=== PATIENT | male | born 1950 | race Caucasian/White ===

== ENCOUNTER → 2019-12-10 | Outpatient (CLI) | payer MEDICARE, OTHER ==
--- NOTE | 2019-12-12 11:08 | PATH ---
[address] [address] PATHOLOGY RPT PROCEDURE Name: JOLENE LIZ Room: [facility]#: [id number] Admission: 12/10/19 Date of : 46 Discharge: Report #: [id number] Path Case #: [id number] Note [facility] Accession Number: [id number] TESTS RESULT FLAG UNITS REF RANGE LAB Clinician Provided Cytology Information No. of containers..01 Other (Miscellaneous) Source: RT THYROID FNA DIAGNOSIS: RT THYROID FNA NEGATIVE FOR MALIGNANT CELLS. B[place]ESDA CATEGORY II. SPECIMEN CONSISTS OF ABUNDANT BENIGN FOLLICULAR CELLS, HEMOSIDERIN-LADEN MACROPHAGES, SCANT COLLOID AND BLOOD. THE PATTERN IS CONSISTENT WITH ADENOMATOID NODULE. THIS INTERPRETATION INCLUDES EVALUATION OF A CELL BLOCK. Pathologist ICD10: 02 E04.1 Signed out by: 02 Brant Gonsales MD, Pathologist NPI- [id number] Performed by: Alida Bingham, Forensic Anthropologist ([facility]) Gross description: 01 20 ML, PEACH/CLEAR, 4FX 4AD /LCS 12/10/2019 1531 Local FLAG LEGEND: L-Low Normal,H-High Normal,LL-Alert Low,HH-Alert High <-Panic Low,>-Panic High,A-Abnormal,AA-Critical Abnormal Performed at: [address] [place] [address] Jose Whaley MD, [address] [place] [address] [address] [place] [address] Brant Gonsales MD, Specimen Comment: [id number] Performed at: [address], [place], [place] [id number] MD Jose Whaley MD Phone: [phone]
== END | disposition home or self-care (01) ==
LOC: M.ULTRA 07:51
DX: E04.1 Nontoxic single thyroid nodule (principal)